=== PATIENT | male | born 1965 | race Caucasian/White ===

== ENCOUNTER → 2024-12-02 | Outpatient (CLI) | payer OTHER, SELFPAY ==
--- NOTE | 2024-12-02 12:46 | XR_ITS ---
Examination: Knee, right , 3 views Technique: Knee AP, lateral, oblique 3 views Date and time of exam: December 02, 2024 1327 hours INDICATIONS: Patient fell yesterday with injury to the knee, knee pain. 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 No acute fracture IMPRESSION: No acute fracture
== END | disposition home or self-care (01) ==
PROVIDERS: PCP Family Medicine; Referring Provider Family Medicine; Visit Provider Family Medicine
DX: S83.92XA Sprain of unspecified site of left knee, initial encounter (principal); X58.XXXA Exposure to other specified factors, initial encounter
CPT/HCPCS: 73562